=== PATIENT | female | born 1960 | race Caucasian/White ===

== ENCOUNTER 2017-04-14 18:50 | Emergency (ER) | payer OTHER ==
--- NOTE | 2017-04-14 19:21 | EDM.PDOC ---
ED HPI GENERAL MEDICAL PROBLEM - General Chief Complaint: Upper Extremity Injury/Pain Stated Complaint: R WRIST/ARM PAIN Time Seen by Provider: 04/14/17 19:10 Source of Information: Reports: Patient, Family History Limitations: Reports: No Limitations - History of Present Illness INITIAL COMMENTS - FREE TEXT/NARRATIVE: 56-year-old female slipped backwards on the ice jamming her right wrist and to the ground. She has significant pain in the wrist, some numbness in her fingers and some shots of pain radiating up into the forearm. She has marked pain with movement of the hand. Some swelling is developing. No significant deformity. No other injury. 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 ED EXAM, GENERAL - Physical Exam Exam: See Below Exam Limited By: No Limitations General Appearance: Alert, Mild Distress (Patient is fairly uncomfortable) Neck: Supple Respiratory/Chest: No Respiratory Distress Extremities: Other (Exam is otherwise limited to the upper extremities. She has no tenderness to palpation of the shoulders, clavicles or elbows. The right wrist is very tender to any palpation or movement, some swelling is developing at the base of the thumb and distal radius) Course - Vital Signs Last Recorded V/S: Last Vital Signs Temp 98.8 F 04/14/17 19:13 Pulse 90 04/14/17 19:13 Resp 16 04/14/17 19:13 BP 147/62 H 04/14/17 19:13 Pulse Ox 98 04/14/17 19:13 - Orders/Labs/Meds Orders: Active Orders 24 hr Category Date Time Status Wrist Comp Min 3V Rt [CR] Stat Exams 04/14/17 19:14 Taken DME for Discharge [COMM] Stat Oth 04/14/17 19:36 Ordered - Re-Assessments/Exams Free Text/Narrative Re-Assessment/Exam: 04/14/17 19:21 An x-ray was obtained of the right wrist. 04/14/17 19:34 X-rays negative for fracture. A three-inch Sebastian wrap was applied to the wrist and forearm for support and the patient was given a sling to help with elevation. She is to increase activity as tolerated and use ibuprofen or naproxen for pain. She was also given 6 hydrocodone to use for extra pain control. I strongly suggested she recheck next week if not healing satisfactorily. Departure - Departure Time of Disposition: 19:50 Disposition: Home, Self-Care 01 Condition: Good Clinical Impression: Right wrist sprain Qualifiers: Encounter type: initial encounter Qualified Code(s): S63.501A - Unspecified sprain of right wrist, initial encounter - Discharge Information Instructions: Wrist Sprain Referrals: PCP,None [Primary Care Provider] - Forms: ED Department Discharge Care Plan Goals: Sebastian wrap for comfort the next several days, ice may help and ibuprofen or naproxen for pain. Add stronger pain medication if needed and as directed. Recheck next week if not healing satisfactorily. - My Orders Last 24 Hours: My Active Orders 04/14/17 19:14 Wrist Comp Min 3V Rt [CR] Stat 04/14/17 19:36 DME for Discharge [COMM] Stat - Assessment/Plan Last 24 Hours: My Active Orders 04/14/17 19:14 Wrist Comp Min 3V Rt [CR] Stat 04/14/17 19:36 DME for Discharge [COMM] Stat
--- NOTE | 2017-04-15 10:14 | CR ---
Wrist Comp Min 3V Rt HISTORY: fall,injury FINDINGS: No acute fracture or dislocation is identified. Bony architecture and joint spaces are preserved. C arpal bone alignment is satisfactory. Soft tissues are unremarkable. IMPRESSION: No acute right wrist abnormality identified.
== END 2017-04-14 19:50 | disposition home or self-care (01) ==
LOC: JP.ED 18:50
DX: S63.501A Unspecified sprain of right wrist, initial encounter (principal); W00.9XXA Unspecified fall due to ice and snow, initial encounter
CPT/HCPCS: 73110-26-RT; 73110-RT; 99283; 99284

== ENCOUNTER 2017-10-21 03:08 | Observation (INO) | payer SELFPAY ==
[2017-10-21] MEDS ORDERED: Ketorolac 60 MG/2 ML SDV IM ONE (03:33)
[2017-10-21] MEDS ORDERED: Gabapentin 300 MG Cap PO ONE (03:40)
[2017-10-21] MEDS ORDERED: methylPREDNISolone Sodium Succinate 125 MG/2 ML SDV IVPUSH ONE (03:41)
[2017-10-21] MEDS ORDERED: Sodium Chloride 0.9% 10 ML Syringe FLUSH PRN (03:41)
[2017-10-21] MEDS ORDERED: Ketorolac 30 MG/ML SDV IVPUSH ONE (03:42)
--- NOTE | 2017-10-21 03:47 | EDM.PDOC ---
ED HPI GENERAL MEDICAL PROBLEM - General Chief Complaint: Back Pain or Injury Stated Complaint: MEDICAL VIA [facility] Time Seen by Provider: 10/21/17 03:35 Source of Information: Reports: Patient, RN History Limitations: Reports: No Limitations - History of Present Illness INITIAL COMMENTS - FREE TEXT/NARRATIVE: 57 yo female has had low back pain radiating down her R leg for the past week and a half. No urinary incontinence. Was to the clinic and got [place] 5/325 and tizanidine without relief. Has been to a chiropractor a couple times without relief. Here now via EMS due to the pain that is worse with movement. 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: Other (see below) (Tizanidine, is out of the [place]) right back Pain Score (Numeric/FACES): 8 - Related Data Allergies Allergy/AdvReac Type Severity Reaction Status Date / Time No Known Allergies Allergy Verified 10/21/17 03:23 Home Meds: Home Meds tiZANidine 2 mg PO TID PRN 10/21/17 [History] 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: - Past Surgical History HEENT Surgical History: Reports: Eye Surgery, LASIK, Other (See Below) Female Surgical History: Reports: Tubal Ligation Social & Family History - Tobacco Use Smoking Status *Q: Former Smoker Used Tobacco, but Quit: Yes Month/Year Tobacco Last Used: 2005 - Caffeine Use Caffeine Use: Reports: Tea - Recreational Drug Use Recreational Drug Use: No ED ROS GENERAL - Review of Systems Review Of Systems: See Below Constitutional: Reports: No Symptoms HEENT: Reports: No Symptoms Respiratory: Reports: No Symptoms Cardiovascular: Reports: No Symptoms GI/Abdominal: Reports: No Symptoms : Reports: No Symptoms Musculoskeletal: Reports: Back Pain Skin: Reports: No Symptoms Neurological: Reports: Other (pain down R leg) Psychiatric: Reports: No Symptoms ED EXAM,LOWER BACK PAIN/INJURY - Physical Exam Exam: See Below Exam Limited By: No Limitations General Appearance: Alert, WD/WN, No Apparent Distress Eye Exam: Bilateral Eye: Normal Inspection Ears: Normal External Exam, Normal Canal, Hearing Grossly Normal Nose: Normal Inspection, Normal Mucosa, No Blood Throat/Mouth: Normal Inspection, Normal Lips, Normal Oropharynx, Normal Voice, No Airway Compromise Head: Atraumatic, Normocephalic Neck: Normal Inspection, Supple Respiratory/Chest: No Respiratory Distress, Lungs Clear, Normal Breath Sounds, No Accessory Muscle Use Cardiovascular: Regular Rate, Rhythm, No Edema GI/Abdominal: Normal Bowel Sounds, Soft, Non-Tender Back Exam: Normal Inspection. No: CVA Tenderness (R), CVA Tenderness (L) Extremities: Normal Inspection, Normal Range of Motion, Non-Tender, No Pedal Edema Neurological: Alert, Normal Mood/Affect, CN II-XII Intact, No Motor/Sensory Deficits, Oriented x 3, Straight Leg Raise (R) Psychiatric: Normal Affect, Normal Mood Skin Exam: Warm, Dry, Intact, Normal Color, No Rash Lymphatic: No Adenopathy Course - Vital Signs Last Recorded V/S: Last Vital Signs Temp 36.2 C 10/21/17 03:20 Pulse 76 10/21/17 03:20 Resp 18 10/21/17 03:20 BP 124/77 10/21/17 03:20 Pulse Ox 97 10/21/17 03:20 - Orders/Labs/Meds Orders: Active Orders 24 hr Category Date Time Status Sodium Chloride 0.9% [Saline Flush] Med 10/21/17 03:41 Active 10 ml FLUSH ASDIRECTED PRN Saline Lock Insert [OM.PC] Routine Oth 10/21/17 03:41 Ordered Medication Orders Sodium Chloride (Saline Flush) 10 ml FLUSH ASDIRECTED PRN PRN Reason: Keep Vein Open Last Admin: 10/21/17 04:00 Dose: 10 ml Meds: Medications Generic Name Dose Route Start Last Admin Trade Name Freq PRN Reason Stop Dose Admin Sodium Chloride 10 ml 10/21/17 03:41 10/21/17 04:00 Saline Flush FLUSH 10 ml ASDIRECTED PRN Administration Keep Vein Open Discontinued Medications Generic Name Dose Route Start Last Admin Trade Name Freq PRN Reason Stop Dose Admin Gabapentin 300 mg 10/21/17 03:40 10/21/17 04:03 Neurontin PO 10/21/17 03:41 300 mg ONETIME ONE Administration Hydromorphone HCl 1 mg 10/21/17 04:32 10/21/17 04:38 Dilaudid IVPUSH 10/21/17 04:33 1 mg ONETIME ONE Administration Ketorolac Tromethamine 60 mg 10/21/17 03:33 10/21/17 04:03 Toradol IM 10/21/17 03:34 Not Given ONETIME ONE Ketorolac Tromethamine 30 mg 10/21/17 03:42 10/21/17 04:00 Toradol IVPUSH 10/21/17 03:43 30 mg ONETIME ONE Administration Methylprednisolone Sodium Succinate 125 mg 10/21/17 03:41 10/21/17 04:02 Solu-Medrol IVPUSH 10/21/17 03:42 125 mg ONETIME ONE Administration Departure - Departure Time of Disposition: 04:45 Disposition: Admitted As Inpatient 66 Condition: Fair Clinical Impression: Lumbar radiculopathy, right, Inadequate pain control Clinical Impression: (Ruled Out): Sciatica - Discharge Information Referrals: PCP,None [Primary Care Provider] - Forms: ED Department Discharge - My Orders Last 24 Hours: My Active Orders 10/21/17 03:41 Sodium Chloride 0.9% [Saline Flush] 10 ml FLUSH ASDIRECTED PRN Saline Lock Insert [OM.PC] Routine - Assessment/Plan Last 24 Hours: My Active Orders 10/21/17 03:41 Sodium Chloride 0.9% [Saline Flush] 10 ml FLUSH ASDIRECTED PRN Saline Lock Insert [OM.PC] Routine
[2017-10-21] MEDS ORDERED: HYDROmorphone 1 MG/ML Syringe IVPUSH ONE (04:32)
--- NOTE | 2017-10-21 05:22 | PCM.HP ---
H&P History of Present Illness - General Date of Service: 10/21/17 Admit Problem/Dx: Admission Diagnosis/Problem Admission Diagnosis/Problem Lumbar radiculopathy Source of Information: Patient, Family (), Provider History Limitations: Reports: No Limitations - History of Present Illness Initial Comments - Free Text/Narative: 57 yo female has had low back pain radiating down her R leg for the past week and a half. No urinary incontinence. Was to the clinic and got [place] 5/325 and tizanidine without relief. Has been to a chiropractor a couple times without relief. Here now via EMS due to the pain that is worse with movement. Onset of Symptoms: Reports: Gradual Symptom Onset Date: 10/09/17 Duration of Symptoms: Reports: Getting Worse Location: Reports: Back, Lower Extremity, Right Quality: Reports: Ache, Burning, Sharp, Stabbing, Throbbing Severity: Severe Improves with: Reports: Immobilization Worsens with: Reports: Movement Associated Symptoms: Reports: No Other Symptoms right back Pain Score (Numeric/FACES): 8 - Related Data Allergies/Adverse Reactions: Allergies Allergy/AdvReac Type Severity Reaction Status Date / Time No Known Allergies Allergy Verified 10/21/17 03:23 Home Medications: Home Meds tiZANidine 2 mg PO TID PRN 10/21/17 [History] 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: - Past Surgical History HEENT Surgical History: Reports: Eye Surgery, LASIK, Other (See Below) Female Surgical History: Reports: Tubal Ligation Social & Family History - Tobacco Use Smoking Status *Q: Former Smoker Used Tobacco, but Quit: Yes Month/Year Tobacco Last Used: 2005 - Caffeine Use Caffeine Use: Reports: Tea - Recreational Drug Use Recreational Drug Use: No - Living Situation & Occupation Living situation: Reports: Occupation: Employed H&P Review of Systems - Review of Systems: Review Of Systems: See Below General: Reports: Other (acute back pain) HEENT: Reports: No Symptoms Pulmonary: Reports: No Symptoms Cardiovascular: Reports: No Symptoms Gastrointestinal: Reports: No Symptoms Genitourinary: Reports: No Symptoms Musculoskeletal: Reports: Back Pain (lumbar), Leg Pain (right) Skin: Reports: No Symptoms Psychiatric: Reports: No Symptoms Neurological: Reports: No Symptoms Hematologic/Lymphatic: Reports: No Symptoms Immunologic: Reports: No Symptoms Exam - Exam Exam: See Below - Vital Signs Vital Signs: Last Vital Signs Temp 36.2 C 10/21/17 03:20 Pulse 76 10/21/17 03:20 Resp 18 10/21/17 03:20 BP 124/77 10/21/17 03:20 Pulse Ox 97 10/21/17 03:20 Weight: 61.235 kg - Exam General: Alert, Oriented, Cooperative, Sedated HEENT: PERRLA, Hearing Intact, Mucosa Moist & [place], Nares Patent, Normal Nasal Septum, Posterior Pharynx Clear, Conjunctiva Clear, EOMI, EACs Clear, TMs Clear Neck: Supple, Trachea Midline, 2 Lungs: Clear to Auscultation, Normal Respiratory Effort Cardiovascular: Normal S1, Normal S2 GI/Abdominal Exam: Normal Bowel Sounds, Soft, No Organomegaly, No Distention, No Abnormal Bruit, No Mass, Pelvis Stable, Tender (Female) Exam: Deferred Rectal (Female) Exam: Deferred Back Exam: Muscle Spasm Extremities: Normal Inspection, Normal Range of Motion, No Pedal Edema, Normal Capillary Refill, Other (right leg with increase pain with straight leg lift, no foot drop is noted.) Skin: Warm, Dry, Intact Neurological: Strength Equal Bilateral Neuro Extensive - Mental Status: Alert, Oriented x3, Normal Mood/Affect Neuro Extensive - Motor, Sensory, Reflexes: Normal Reflexes Psychiatric: Alert, Normal Affect, Normal Mood - Problem List (1) Lumbar radiculopathy, right SNOMED Code(s): 824476148 ICD Code: M54.16 - RADICULOPATHY, LUMBAR REGION Status: Acute Priority: High Current Visit: Yes Problem List Initiated/Reviewed/Updated: Yes Orders Last 24hrs: Active Orders 24 hr Category Date Time Status Patient Status Manage Transfer [TRANSFER] Routine ADT 10/21/17 05:05 Ordered Sodium Chloride 0.9% [Saline Flush] Med 10/21/17 03:41 Active 10 ml FLUSH ASDIRECTED PRN Saline Lock Insert [OM.PC] Routine Oth 10/21/17 03:41 Ordered Resuscitation Status Routine Resus Stat 10/21/17 05:06 Ordered Medication Orders Sodium Chloride (Saline Flush) 10 ml FLUSH ASDIRECTED PRN PRN Reason: Keep Vein Open Last Admin: 10/21/17 04:00 Dose: 10 ml Assessment/Plan Comment:: ASSESSMENT / PLAN 57 yo female has had low back pain radiating down her R leg for the past week and a half. No urinary incontinence. Was to the clinic and got [place] 5/325 and tizanidine without relief. Has been to a chiropractor a couple times without relief. Here now via EMS due to the pain that is worse with movement. Plan -Admit Observation 2 North for further monitoring Acute lumbar radiculopathy, radiates to right leg -Iv fluids Normal Saline at 125ml/hr -pain medications ordered. 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 labs: CBC, BMP Maintenance issues -Orders home meds: hold -Nutrition: Regular diet -Alarcon catheter not indicated at this time -DVT:Lovenox 40mg subcut daily -GI Prophalaxis; Protonix 40mg daily -consult PT -consult OT CODE STATUS: Full Admission status: Admit to Observation -I expect this patient to stay less than 24 hours, not to exceed 96 hours for evaluation and management of this problem. Disposition: home with family Primary care provider: Rashad Garcia CNP, [facility] Hospitalist: Dr. Lawson
[2017-10-21] MEDS ORDERED: Albuterol 0.083% 2.5 MG/3 ML Neb Soln NEB PRN (05:45)
[2017-10-21] MEDS ORDERED: HYDROmorphone/Normal Saline 15 MG/30 ML PCA IV PRN (05:45)
[2017-10-21] MEDS ORDERED: Acetaminophen 325 MG Tab PO PRN (05:45)
[2017-10-21] MEDS ORDERED: Naloxone 0.4 MG/ML SDV IVPUSH PRN (05:45)
[2017-10-21] MEDS ORDERED: LORazepam 2 MG/ML SDV IV PRN (05:45)
[2017-10-21] MEDS ORDERED: Ondansetron 4 MG Tab.DIS PO PRN (05:45)
[2017-10-21] MEDS ORDERED: Docusate Sodium 100 MG Cap PO PRN (05:45)
[2017-10-21] MEDS ORDERED: Ondansetron 4 MG/2 ML SDV IV PRN (05:45)
[2017-10-21] MEDS ORDERED: Bisacodyl 5 MG Tab PO PRN (05:45)
[2017-10-21] MEDS: Sodium Chloride 0.9% 1,000 ML IV SCH ×2 (06:16→15:13)
[2017-10-21] MEDS ORDERED: Enoxaparin 40 MG/0.4 ML Syringe SUBCUT SCH (10:00)
--- NOTE | 2017-10-21 15:05 | MR ---
Lumbar Spine Comp wo Cont CLINICAL HISTORY: Right-sided back pain COMPARISON: None TECHNIQUE: Multiple pulse sequences were obtained through the lumbar spine in the axial and sagittal planes without the IV infusion of contrast material. All images were obtained on a 1.5 Cat unit. FINDINGS: Sagittal images show the lumbar vertebral configuration and signal of the normal throughout . Alignment is maintained. The conus medullaris and spinal nerve roots have a normal signal and confi guration. Axial images show normal disc contour at T12-L1 and L1-2. There is left posterior lateral disc protru felicity at the L2-3 this encroaches on the left neural foramina. There is left posterior lateral disc protrusion at the L3-4 encroachment in the left lateral recess a nd neural foramina. There is a right posterior disc protrusion at L4-5 with a small upper disc extrus ion encroaching on the right lateral recess. There is also right neural foraminal encroachment. There is central disc protrusion at L5-S1 encroaching in the anterior thecal sac. IMPRESSION: Left posterior lateral disc protrusion at L2-3 encroaching and left neural foramina Left posterior lateral disc protrusion with small upward disc extrusion at L3-4 encroaching left late ral recess and neural foramina. There is right posterior disc protrusion and a small upward extrusion at L4-5 with encroachment on th e right lateral recess and right neural foramina
--- NOTE | 2017-10-21 16:02 | PCM.DCSUM1 ---
Discharge Summary - Hospital Course Brief History: Ms. Armendariz is a 57-year-old woman who was admitted to observation status through the emergency department for uncontrolled back and radicular pain into her right leg. Diagnosis: Stroke: No - Discharge Data Discharge Date: 10/21/17 Discharge Disposition: Home, Self-Care 01 Condition: Fair - Discharge Diagnosis/Problem(s) (1) Lumbar radiculopathy, right SNOMED Code(s): 409325616 ICD Code: M54.16 - RADICULOPATHY, LUMBAR REGION Status: Acute Priority: High Current Visit: Yes (2) Inadequate pain control SNOMED Code(s): 346731241 ICD Code: R52 - PAIN, UNSPECIFIED Status: Acute Current Visit: Yes - Patient Summary/Data Consults: Consultations 10/21/17 05:45 OT Evaluation and Treatment [CONS] Routine Please Evaluate and Treat. OT Reason for Consult: Discharge Planning This query below is only for informational purposes and is not editable. PT Evaluation and Treatment [CONS] Routine Please Evaluate and Treat. PT Reason for Consult: Ambulation This query below is only for informational purposes and is not editable. Hospital Course: 57 yo female has had low back pain radiating down her R leg for the past week and a half. No urinary incontinence. Was to the clinic and got [place] 5/325 and tizanidine without relief. Has been to a chiropractor a couple times without relief. Here now via EMS due to the pain that is worse with movement. She been seen in the clinic last week and treated with a course of oral glucocorticoid therapy and has been using muscle relaxants as well as nonsteroidal therapy. 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 By the next morning she was more comfortable with pain control and an MRI was obtained. MRI did show herniated disc on the left at 2 other levels but also showed a herniated disc at the L4-5 level on the right that appear to be causing nerve root impingement. This was felt to be the most likely cause of her current symptoms. She will be discharged home with oral narcotic pain medication with a limited supply for a few days. She is instructed to take ibuprofen 4-600 mg every 6 hours as needed for pain but should always take the medication with food. Will return to the emergency department if she notes weakness in the leg or sensory changes that did not resolve with position change. Appointment has been scheduled with Dr. Ceasar Pedro for October 24. Activity will be as tolerated and she will resume her usual diet. - Patient Instructions Diet: Usual Diet as Tolerated Activity: As Tolerated Other/Special Instructions: Patient has a follow-up appointment scheduled with Dr. Ceasar Pedro for October 24. - Discharge Plan Prescriptions/Med Rec: HYDROmorphone HCl [Hydromorphone HCl] 2 mg PO Q3H PRN #20 tablet PRN Reason: Pain Ibuprofen 400 mg PO Q6H PRN #60 capsule PRN Reason: Pain Home Medications: Home Meds HYDROmorphone HCl [Hydromorphone HCl] 2 mg PO Q3H PRN #20 tablet 10/21/17 [Rx] Ibuprofen 400 mg PO Q6H PRN #60 capsule 10/21/17 [Rx] Referrals: Luis Pedro DO [Physician] - 10/24/17 9:30 am - Discharge Summary/Plan Comment DC Time >30 min.: No - Patient Data Vitals - Most Recent: Last Vital Signs Temp 97.6 F 10/21/17 07:16 Pulse 69 10/21/17 07:16 Resp 16 10/21/17 07:16 BP 111/65 10/21/17 07:16 Pulse Ox 99 10/21/17 13:09 Weight - Most Recent: 126 lb 1.6 oz I&O - Last 24 hours: Intake & Output 10/21/17 10/21/17 10/21/17 06:59 14:59 22:59 Intake Total 1450 Balance 1450 Lab Results - Last 24 hrs: Laboratory Results - last 24 hr 10/21/17 10/21/17 Range/Units 09:25 09:25 WBC 8.4 (4.5-11.0) K/uL RBC 5.09 (3.30-5.50) M/uL Hgb 15.5 H (12.0-15.0) g/dL Hct 45.7 (36.0-48.0) % MCV 90 (80-98) fL MCH 31 (27-31) pg MCHC 34 (32-36) % Plt Count 423 H (150-400) K/uL Sodium 138 L (140-148) mmol/L Potassium 4.1 (3.6-5.2) mmol/L Chloride 102 (100-108) mmol/L Carbon Dioxide 25 (21-32) mmol/L Anion Gap 15.1 H (5.0-14.0) mmol/L BUN 22 H (7-18) mg/dL Creatinine 1.0 (0.6-1.0) mg/dL Est Cr Clr Drug Dosing 54.64 mL/min Estimated GFR (MDRD) 57 L (>60) Glucose 133 H (74-106) mg/dL Calcium 9.2 (8.5-10.1) mg/dL Total Bilirubin 0.7 (0.2-1.0) mg/dL AST 11 L (15-37) U/L ALT 20 (12-78) U/L Alkaline Phosphatase 67 (46-116) U/L Total Protein 7.8 (6.4-8.2) g/dL Albumin 4.5 (3.4-5.0) g/dL Globulin 3.3 (2.3-3.5) g/dL Albumin/Globulin Ratio 1.4 (1.2-2.2) Med Orders - Current: Current Medications Acetaminophen (Tylenol) 650 mg PO Q4H PRN PRN Reason: Pain (Mild 1-3)/fever Albuterol (Proventil Neb Soln) 2.5 mg NEB Q4H PRN PRN Reason: Shortness Of Breath/wheezing Bisacodyl (Dulcolax) 5 mg PO DAILY PRN PRN Reason: Constipation Docusate Sodium (Colace) 100 mg PO BID PRN PRN Reason: Constipation Enoxaparin Sodium (Lovenox) 40 mg SUBCUT Q24H [facility] Last Admin: 10/21/17 11:44 Dose: 40 mg Hydromorphone HCl (Dilaudid [employer]tr [employer] Driver 15 Mg In Ns 30 Ml) 0 mg IV ASDIRECTED PRN; Protocol PRN Reason: Pain Last Admin: 10/21/17 06:16 Dose: 15 mg Sodium Chloride (Normal Saline) 1,000 mls @ 125 mls/hr IV ASDIRECTED AFTAB Last Admin: 10/21/17 15:13 Dose: 125 mls/hr Lorazepam (Ativan) 1 mg IV Q6H PRN PRN Reason: Nausea/Vomiting Naloxone HCl (Narcan) 0.4 mg IVPUSH Q2M PRN PRN Reason: Respiratory Distress Ondansetron HCl (Zofran Odt) 4 mg PO Q6H PRN PRN Reason: Nausea able to take PO Ondansetron HCl (Zofran) 4 mg IV Q4H PRN PRN Reason: Nausea/Vomiting Sodium Chloride (Saline Flush) 10 ml FLUSH ASDIRECTED PRN PRN Reason: Keep Vein Open Last Admin: 10/21/17 04:00 Dose: 10 ml Discontinued Medications Gabapentin (Neurontin) 300 mg PO ONETIME ONE Stop: 10/21/17 03:41 Last Admin: 10/21/17 04:03 Dose: 300 mg Hydromorphone HCl (Dilaudid) 1 mg IVPUSH ONETIME ONE Stop: 10/21/17 04:33 Last Admin: 10/21/17 04:38 Dose: 1 mg Ketorolac Tromethamine (Toradol) 60 mg IM ONETIME ONE Stop: 10/21/17 03:34 Last Admin: 10/21/17 04:03 Dose: Not Given Ketorolac Tromethamine (Toradol) 30 mg IVPUSH ONETIME ONE Stop: 10/21/17 03:43 Last Admin: 10/21/17 04:00 Dose: 30 mg Methylprednisolone Sodium Succinate (Solu-Medrol) 125 mg IVPUSH ONETIME ONE Stop: 10/21/17 03:42 Last Admin: 10/21/17 04:02 Dose: 125 mg - Exam General: Reports: Alert, Oriented, Cooperative, Moderate Distress Lungs: Reports: Clear to Auscultation, Normal Respiratory Effort Cardiovascular: Reports: Regular Rate, Regular Rhythm, No Murmurs GI/Abdominal Exam: Soft, Non-Tender, No Organomegaly, No Distention Neurological: Reports: No New Focal Deficit, Normal Tone, Strength Equal Bilateral, Sensation Intact
== END 2017-10-21 16:35 | disposition home or self-care (01) ==
LOC: JP.ED 03:08 → JP.MS 05:05
PROVIDERS: ADMIT Hospitalist; ATTEND Hospitalist
DX: M51.16 Intervertebral disc disorders with radiculopathy, lumbar region (principal); Z87.891 Personal history of nicotine dependence
CPT/HCPCS: 36415; 72148; 80053; 85027; 96374; 96375; 97161; 97165; 97530; 97535; 99285; A9270; J1170; J1650; J1885; J2930; J7030; J7050; 99283

== ENCOUNTER 2019-03-26 19:04 | Emergency (ER) | payer OTHER, SELFPAY ==
[2019-03-26] MEDS ORDERED: Lactated Ringers 1,000 ML IV ONE (19:20)
[2019-03-26] MEDS ORDERED: Ketorolac 30 MG/ML SDV IVPUSH ONE ×2 (19:21→19:31)
[2019-03-26] MEDS ORDERED: HYDROmorphone 0.5 MG/0.5 ML Syringe IVPUSH ONE (19:22)
--- NOTE | 2019-03-26 19:32 | EDM.PDOC ---
ED HPI GENERAL MEDICAL PROBLEM - General Chief Complaint: Neurological Problem Stated Complaint: [facility] Time Seen by Provider: 03/26/19 19:15 Source of Information: Reports: Patient History Limitations: Reports: No Limitations - History of Present Illness INITIAL COMMENTS - FREE TEXT/NARRATIVE: 58 yo female had a flare up of her low back pain a few days ago and had spent most of the day today in bed. She got up for dinner and was sitting on a stool at the counter when she when she developed some nausea. She turned away from the counter at this point and fell forward off the stool hitting her forehead on their tile floor. The witnessed the fall and says she was out for about 15 seconds and did some twitching while out. She has passed out twice in the remote past in association with seeing her own blood. Arrives via EMS who gave Toradol 15 mg IV en route. Has no current complaint other than her low back pain that radiates to her L hip/groin area. Had epidural cortisone for this back pain in the past with sustained relief, has disc herniations. 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 Tizanidine at home.) , See EMS Report Left Upper Head Pain Score (Numeric/FACES): 2 Lower Back Pain Score (Numeric/FACES): 8 - Related Data Allergies Allergy/AdvReac Type Severity Reaction Status Date / Time No Known Allergies Allergy Verified 10/24/17 11:47 Home Meds: Home Meds NK [No Known Home Meds] 03/26/19 [History] Past Medical History INCLUSION MANAGER History: Reports: , Other (See Below) Other INCLUSION MANAGER History: Tubal ligation Musculoskeletal History: Reports: Back Pain, Chronic - Infectious Disease History Infectious Disease History: Reports: Chicken Pox, Mumps, Other (See Below) Other Infectious Disease History: When she was a child - Past Surgical History HEENT Surgical History: Reports: Eye Surgery, LASIK, Other (See Below) Female Surgical History: Reports: Tubal Ligation Social & Family History - Family History Family Medical History: Noncontributory - Tobacco Use Smoking Status *Q: Former Smoker Used Tobacco, but Quit: Yes Month/Year Tobacco Last Used: 2011 - Caffeine Use Caffeine Use: Reports: Tea Caffeine Use Comment: daily tea - Alcohol Use Days Per Week of Alcohol Use: 2 Number of Drinks Per Day: 4 Total Drinks Per Week: 8 Date of Last Drink: 03/26/19 - Recreational Drug Use Recreational Drug Use: No - Living Situation & Occupation Living situation: Reports: Occupation: Employed ED ROS GENERAL - Review of Systems Review Of Systems: See Below Constitutional: Reports: No Symptoms HEENT: Reports: No Symptoms Respiratory: Reports: No Symptoms Cardiovascular: Reports: No Symptoms, Syncope (just before arrival.) GI/Abdominal: Reports: Nausea Musculoskeletal: Reports: Back Pain (low) Skin: Reports: Wound (L forehead from her fall) Neurological: Reports: No Symptoms Psychiatric: Reports: No Symptoms - Physical Exam Exam: See Below Exam Limited By: No Limitations General Appearance: Alert, WD/WN, No Apparent Distress Eye Exam: Bilateral Eye: Normal Inspection, PERRL Ears: Normal External Exam, Normal Canal, Hearing Grossly Normal, Normal TMs Nose: Normal Inspection, No Blood Throat/Mouth: Normal Inspection, Normal Lips, Normal Oropharynx, Normal Voice, No Airway Compromise Head Exam: Atraumatic, Normocephalic Neck: Normal Inspection, Non-Tender Respiratory/Chest: No Respiratory Distress, Lungs Clear, Normal Breath Sounds, No Accessory Muscle Use Cardiovascular: Normal Peripheral Pulses, Regular Rate, Rhythm, No Edema GI/Abdominal: Normal Bowel Sounds, Soft, Non-Tender, No Distention Neuro Exam (Abbreviated): Alert, Oriented, CN II-XII Intact, Normal Cognition, No Motor/Sensory Deficits DTR: 2+: Patella (R), 3+: Patella (L) Back Exam: No: CVA Tenderness (R), CVA Tenderness (L) Extremities: Normal Inspection, Normal Range of Motion, Non-Tender, No Pedal Edema Psychiatric: Normal Affect, Normal Mood Skin Exam: Warm, Dry, Intact, Normal Color, No Rash Course - Vital Signs Text/Narrative:: Doing better after treatment Last Recorded V/S: Last Vital Signs Temp 36.6 C 12/02/19 19:09 Pulse 76 03/26/19 19:09 Resp 14 03/26/19 19:09 BP 128/69 03/26/19 19:09 Pulse Ox 100 03/26/19 19:09 - Orders/Labs/Meds Labs: Laboratory Tests 03/26/19 03/26/19 03/26/19 Range/Units 19:43 19:43 21:28 WBC 10.3 (4.5-11.0) K/uL RBC 4.42 (3.30-5.50) M/uL Hgb 13.2 D (12.0-15.0) g/dL Hct 39.9 (36.0-48.0) % MCV 90 (80-98) fL MCH 30 (27-31) pg MCHC 33 (32-36) % Plt Count 314 (150-400) K/uL Sodium 141 (140-148) mmol/L Potassium 3.5 L (3.6-5.2) mmol/L Chloride 104 (100-108) mmol/L Carbon Dioxide 26 (21-32) mmol/L Anion Gap 14.5 H (5.0-14.0) mmol/L BUN 13 (7-18) mg/dL Creatinine 0.8 (0.6-1.0) mg/dL Est Cr Clr Drug Dosing 67.00 mL/min Estimated GFR (MDRD) > 60 (>60) Glucose 101 (74-106) mg/dL Calcium 9.3 (8.5-10.1) mg/dL Troponin I < 0.017 (0.000-0.056) ng/mL Urine Color Yellow (YELLOW) Urine Appearance Cloudy A (CLEAR) Urine pH 7.5 (5.0-8.0) Ur Specific [place] 1.020 (1.008-1.030) Urine Protein Negative (NEGATIVE) mg/dL Urine Glucose (UA) Negative (NEGATIVE) mg/dL Urine Ketones Negative (NEGATIVE) mg/dL Urine Occult Blood Trace-intact H (NEGATIVE) Urine Nitrite Negative (NEGATIVE) Urine Bilirubin Negative (NEGATIVE) Urine Urobilinogen 0.2 (0.2-1.0) EU/dL Ur Leukocyte Esterase Small H (NEGATIVE) Urine RBC 0-5 (0-5) Urine WBC 5-10 H (0-5) Ur Epithelial Cells Rare Amorphous Sediment Not seen Urine Bacteria Rare Urine Mucus Not seen Meds: Medications Discontinued Medications Generic Name Dose Route Start Last Admin Trade Name Mj PRN Reason Stop Dose Admin Hydromorphone HCl 0.5 mg 03/26/19 19:22 03/26/19 19:39 Dilaudid IVPUSH 03/26/19 19:23 0.5 mg ONETIME ONE Administration Lactated Ringer's 1,000 mls @ 1,000 mls/hr 03/26/19 19:20 03/26/19 19:35 Ringers, Lactated IV 03/26/19 20:19 1,000 mls/hr BOLUS ONE Administration Ketorolac Tromethamine 30 mg 03/26/19 19:21 03/26/19 19:37 Toradol IVPUSH 03/26/19 19:22 Not Given ONETIME ONE Ketorolac Tromethamine 15 mg 03/26/19 19:31 03/26/19 19:37 Toradol IVPUSH 03/26/19 19:32 15 mg ONETIME ONE Administration Ondansetron HCl 4 mg 03/26/19 21:27 03/26/19 21:35 Zofran IVPUSH 03/26/19 21:28 4 mg ONETIME ONE Administration Departure - Departure Time of Disposition: 21:52 Disposition: Home, Self-Care 01 Condition: Fair Clinical Impression: Low back pain Qualifiers: Chronicity: acute Back pain laterality: left Sciatica presence: with sciatica Sciatica laterality: sciatica of left side Qualified Code(s): M54.42 - Lumbago with sciatica, left side Syncope Qualifiers: Syncope type: vasovagal syncope Qualified Code(s): R55 - Syncope and collapse - Discharge Information *PRESCRIPTION DRUG MONITORING PROGRAM REVIEWED*: No *COPY OF PRESCRIPTION DRUG MONITORING REPORT IN PATIENT SHEYLA: No Instructions: Chronic Back Pain, [id number] Referrals: PCP,None [Primary Care Provider] - Forms: ED Department Discharge Additional Instructions: Take Zofran as directed for nausea control. Take ibuprofen 400 mg every 6 hrs with food. Add either acetaminophen OR [place] for added relief. Drink ample fluids so your urine is light yellow. Recheck with your provider tomorrow or [facility].
[2019-03-26] MEDS ORDERED: Ondansetron 4 MG/2 ML SDV IVPUSH ONE (21:27)
== END 2019-03-26 22:21 | disposition home or self-care (01) ==
LOC: JP.ED 19:04
DX: M54.42 Lumbago with sciatica, left side (principal); R55 Syncope and collapse; Z87.891 Personal history of nicotine dependence
CPT/HCPCS: 36415; 80048; 81001; 84484; 85027; 96361; 96374; 96375; 99284; J1170; J1885; J2405; J7120

== ENCOUNTER 2023-10-25 08:06 | Emergency (ER) | payer BC ==
[2023-10-25] MEDS: Cyclobenzaprine 10 MG Tab PO ONE (09:08)
[2023-10-25] MEDS: Ketorolac 30 MG/ML SDV IM ONE (09:08)
[2023-10-25] MEDS: HYDROmorphone 1 MG/ML Syringe IM ONE (10:45)
== END 2023-10-25 12:19 | disposition home or self-care (01) ==
LOC: JP.ED 08:06
DX: M54.42 Lumbago with sciatica, left side (principal)
CPT/HCPCS: 96372; 99283; A9270-GY; J1170; J1885

== ENCOUNTER 2023-10-28 09:28 | Emergency (ER) | payer BC ==
[2023-10-28] MEDS ORDERED: Norepinephrine Bit/D5W Premix 4 MG in Premix Bag 1 BAG IV SCH (11:15)
== END 2023-10-28 11:55 | disposition home or self-care (01) ==
LOC: JP.ED 09:28
DX: M54.31 Sciatica, right side (principal)
CPT/HCPCS: 99283